=== PATIENT | male | born 1985 | race Hispanic/Latino ===

== ENCOUNTER 2019-01-28 08:45 | Day surgery (SDC) | payer BC ==
[2019-01-28 09:15] VITALS: BMI 25.1
[2019-01-28] MEDS ORDERED: Lactated Ringer's 1,000 ML IV ONE ×2 (09:24→12:30)
[2019-01-28] MEDS ORDERED: Bupivacaine 0.5% Inj(30mL) ONE (10:49)
[2019-01-28] MEDS ORDERED: Succinylcholine Chloride 20 mg/ml Syr (5 ml) IV ONE (10:52)
[2019-01-28] MEDS ORDERED: Propofol 10 mg/ml Inj (20 ML) ONE (10:52)
[2019-01-28] MEDS ORDERED: Rocuronium 10 mg/ml (5 ml) ONE (10:52)
[2019-01-28] MEDS ORDERED: Neostigmine 1:1000 (1 mg/ml) Inj ONE (12:35)
[2019-01-28] MEDS ORDERED: Bupivacaine 0.5% 50 ML IJ ONE (12:50)
[2019-01-28] MEDS ORDERED: HYDROmorphone 0.5 mg/0.5 ml ISec IVP PRN (13:23)
--- NOTE | 2019-01-28 13:25 | PCM.SURG1 ---
Surgeon's Initial Post Op Note - Surgeon's Notes Surgeon: Dr. Colon Laborer Carpentry Dock: PGY2 Type of Anesthesia: General Endo Anesthesia Administered By: Dr. Salinas Pre-Operative Diagnosis: Incarcerated umbilical hernia Operative Findings: Incarcerated umbilical hernia w/ omentum. closed with prolene mesh. for details see op note Post-Operative Diagnosis: as above Operation Performed: Open umbilical hernia repair with mesh Specimen/Specimens Removed: 1. hernia, omentum Estimated Blood Loss: EBL {In ML}: 6 Drains Used: No Drains Post-Op Condition: Good Date of Surgery/Procedure: 01/28/19 Time of Surgery/Procedure: 13:25
[2019-01-28] MEDS ORDERED: Lactated Ringer's 1,000 ML IV SCH (13:30)
[2019-01-28 15:09] VITALS: RESP 18; TEMP 97.6; O2SAT 100
[2019-01-28 16:05] VITALS: BP 106/71; PULSE 65
--- NOTE | 2019-02-05 07:39 | OP ---
OPERATIVE REPORT -Operative Report Date of Procedure: 01/28/19 Surgeon: Dr. Colon Awnings Mechanic: PGY2 Type of Anesthesia: General Endo Anesthesia Administered By: Dr. Salinas Pre-Operative Diagnosis: Incarcerated umbilical hernia Operative Findings: Incarcerated umbilical hernia w/ omentum. closed with prolene mesh. for details see op note Post-Operative Diagnosis: as above Operation Performed: Open umbilical hernia repair with mesh Brief History: This gentleman had a chronically incarcerated umbilical hernia. He now undergoes surgical exploration. Description of the Procedure: The patient was brought to the operating room and after induction of general endotracheal anesthesia he was prepped and draped in usual sterile manner. A periumbilical incision was made with a 15 blade. Immediately upon entering the abdominal cavity a fat containing portion of omentum was protruding. Using blunt dissection with the electrocautery the omentum was dissected free and reduced into the abdominal cavity. The fascia surrounding it was examined. A circular mesh was then placed into the room and tacked with 2-0 PDS sutures in an underlay technique. Once this was completed the fascia was closed over this. The skin was then closed with 4-0 Monocryl. Patient was then awakened, extubated and brought to the recovery room in stable condition. Specimen/Specimens Removed: 1. hernia, omentum Estimated Blood Loss: EBL {In ML}: 6 Drains Used: No Drains Post-Op Condition: Good Date of Surgery/Procedure: 01/28/19 Time of Surgery/Procedure: 13:25 MTDD
== END 2019-01-28 16:45 | disposition home or self-care (01) ==
LOC: H.OPSURG 08:45
PROVIDERS: ATTEND Surgery
DX: K42.0 Umbilical hernia with obstruction, without gangrene (principal)
CPT/HCPCS: 49587; 88304; 88305; C1781; J0690; J1885; J2001; J2704; J2710; J3010; J7030; J7120